=== PATIENT | female | born 2000 | race Caucasian/White ===

== ENCOUNTER 2024-01-26 07:00 | Emergency (ER) | payer OTHER ==
[~2024-01-26] VITALS: Ht 157.5 cm; Wt 69.4 kg
[2024-01-26] MEDS ORDERED: VENTOLIN HFA18 GM INH (07:48)
[2024-01-26 07:51] VITALS: BP 120/73
== END 2024-01-26 08:02 | disposition home or self-care (01) ==
LOC: ED 07:00
DX: J06.9 Acute upper respiratory infection, unspecified (principal); J45.909 Unspecified asthma, uncomplicated; Z91.040 Latex allergy status; Z91.011 Allergy to milk products
CPT/HCPCS: 99283

== ENCOUNTER 2024-06-01 12:57 | Emergency (ER) | payer OTHER ==
[~2024-06-01] VITALS: Ht 157.5 cm; Wt 84.1 kg
[~2024-06-01 12:57] MED LIST: VENTOLIN HFA18 GM INH
[2024-06-01 13:30] LABS: BASOPHILS 0.9 % (0-2); EOSINOPHILS 1.4 % (0-6); HEMATOCRIT 42.7 % (35.0-50.0); HEMOGLOBIN 14.9 g/dL (12.0-18.0); LYMPHOCYTES 22.2 % (24-44); MCH 32.6 (27-36); MCHC 34.9 g/dl (30-36); MCV 93.6 fl (81-99); MONOCYTES 6.8 % (0-12); NEUTROPHILS 68.7 % (39-80); PLATELET COUNT 221 K/uL (140-440); RBC 4.56 M/ul (4.3-5.7); RDW 13.1 (10.5-15.0)
[2024-06-01 13:47] LABS: ALBUMIN 3.8 g/dL (3.4-5.0); ALBUMIN/GLOBULIN RATIO 1.12 (1.1-2.4); ANION GAP 9.8 (7-21); BILIRUBIN, TOTAL 0.4 mg/dL (0.2-1.0); BUN/CREATININE RATIO 10.34 (6.0-28.6); CALCIUM 8.8 mg/dL (8.5-10.1); CREATININE, SERUM 0.87 mg/dL (0.55-1.02); MAGNESIUM 2.1 mg/dL (1.8-2.4); POTASSIUM 3.8 mmol/L (3.5-5.1); PROTEIN, TOTAL 7.2 g/dL (6.4-8.2)
[2024-06-01] MEDS ORDERED: CYCLOBENZAPRINE HCL 10 MG TAB PO ONE (15:15)
[2024-06-01] MEDS ORDERED: IBUPROFEN 600 MG TAB PO ONE (15:15)
[2024-06-01] MEDS ORDERED: ACETAMINOPHEN 500 MG TAB PO ONE (15:15)
[2024-06-01 15:30] VITALS: BP 117/77
--- NOTE | 2024-06-02 19:12 | EKG ---
[facility] [address] [facility] [place] [address] Signed Normal sinus rhythm with sinus arrhythmia Normal ECG No previous ECGs available Confirmed by James Riggs MD ([id number]) on 06/02/2024 7:11:55 PM Electronically Signed By: JAMES RIGGS MD 06/02/241911 PATIENT NAME: ZACH RO Electrocardiogram DATE OF : [birth year] PHYSICIAN: JAMES RIGGS MD REPORT #: [id number] REPORT IS CONFIDENTIAL AND NOT TO BE RELEASED WITHOUT AUTHORIZATION
== END 2024-06-01 15:47 | disposition home or self-care (01) ==
LOC: ED 12:57
PROVIDERS: Emergency Medicine
DX: R07.89 Other chest pain (principal); G47.30 Sleep apnea, unspecified; J45.909 Unspecified asthma, uncomplicated; Z91.040 Latex allergy status; Z88.8 Allergy status to other drugs, medicaments and biological substances
CPT/HCPCS: 36415; 71045; 80053; 83690; 83735; 84484; 85025; 93005; 93010; 99285-25; A9270